=== PATIENT | female | born 1990 | race Caucasian/White ===

== ENCOUNTER 2019-04-22 13:30 | Outpatient (CLI) | payer OTHER, SELFPAY ==
--- NOTE | 2019-04-22 13:38 | CT_ITS ---
WS: [id number] CT ABDOMEN AND PELVIS WITH CONTRAST HISTORY: LEFT LOWER QUADRANT PAIN TECHNIQUE: Imaging performed of the abdomen and pelvis with IV contrast. Single phase imaging of the abdomen. Coronal and sagittal reformats are submitted. All CT scans at [facility] use at least one of these dose optimization techniques: automated exposure control; mA and/or kV adjustment per patient size (includes targeted exams where dose is matched to clinical indication); or iterativ e reconstruction. IV CONTRAST: Omnipaque 300; 95 mL IV. Oral contrast: Yes. DLP: 1152.7 mGycm COMPARISON: 11/26/2018 Lower thorax: Lung bases are clear. Heart is normal size. No hiatal hernia. Liver/biliary system: Normal size with no intrahepatic dilatation. Gallbladder: Normal. Pancreas: Normal. Spleen: Normal. Adrenal glands: Normal. Right kidney: Normal size. Cortical cyst upper pole measures 11 mm. No solid mass. Nonobstructing 3 m m calcification lower pole. Left kidney: Normal. Aorta: Normal. Lymphadenopathy: None. Free fluid: None. GI tract: Normal appendix. No GI tract obstruction. Abdominal wall: Fat containing umbilical hernia. Pelvis: Complex fluid collection mildly enhancing wall noted deep within the RIGHT adnexa measures 5. 4 x 3.7 cm. This corresponds to the complex collection seen on the recent pelvic ultrasound. May have also been present on the unenhanced study from 11/26/2018. This does appear to be separate from the o vary or very closely associated with the ovary. Benign in appearance and may be a paraovarian cyst or an inclusion cyst. Bones: Unremarkable. 1. No LEFT lower quadrant abnormality identified. 2. Complex fluid collection deep within the RIGHT adnexa. Corresponds to the abnormality identified on the recent pelvic ultrasound of 03/26/2019. This is benign in appearance and may be related to a p arapelvic cyst or an peritoneal inclusion cyst. Less likely related to the fallopian tube. 3. No free fluid in the abdomen or pelvis. 4. Simple RIGHT renal cyst. CT/CT abdomen pelvis w con* [id number] IMPRESSION:
[2019-04-22] MEDS: iohexol 300 mg/mL 50 mL Btl PO (15:07)
[2019-04-22] MEDS: iohexol 300 mg/mL 100 mL Btl IV (15:09)
== END 2019-04-22 13:31 | disposition home or self-care (01) ==
LOC: RADWPI 13:36
PROVIDERS: PCP Physician Assistant; Referring Provider Physician Assistant; Visit Provider Physician Assistant
DX: N28.1 Cyst of kidney, acquired (principal); R10.32 Left lower quadrant pain
CPT/HCPCS: 74177; Q9967